=== PATIENT | female | born 1955 | race Caucasian/White ===

== ENCOUNTER → 2016-05-10 17:01 | Outpatient (CLI) | payer BC ==
[2011-10-22 12:32] VITALS: BMI 25.6
== END | disposition home or self-care (01) ==
LOC: D.MAMMO 16:00
DX: Z12.31 Encounter for screening mammogram for malignant neoplasm of breast (principal)

== ENCOUNTER → 2017-07-10 17:02 | Outpatient (CLI) | payer BC ==
[2011-10-22 12:32] VITALS: BMI 25.6
== END | disposition home or self-care (01) ==
LOC: D.MAMMO 15:45
DX: Z12.31 Encounter for screening mammogram for malignant neoplasm of breast (principal)

== ENCOUNTER 2018-12-10 08:25 | Outpatient (CLI) | payer BC ==
[2011-10-22 12:32] VITALS: BMI 25.6
== END 2018-12-10 23:59 | disposition home or self-care (01) ==
LOC: D.MAMMO 08:25
PROVIDERS: ATTEND Family Medicine
DX: Z12.31 Encounter for screening mammogram for malignant neoplasm of breast (principal)